=== PATIENT | male | born 1965 | race Caucasian/White ===

== ENCOUNTER 2019-03-04 22:09 | Emergency (ER) | payer MEDICAID, OTHER ==
[~2019-03-04] VITALS: Ht 177.8 cm; Wt 167.2 kg
[~2019-03-04 22:09] MED LIST: ASPI-650 PO; LISI5TAB7 PO; METF10002 PO; METO25TA35 PO; SIMV20TA PO
--- NOTE | 2019-03-04 22:28 | NUR ---
Break rn:Pt presents to ed c/o generalized rash/hives throughout body. Cluster of hives noted throughout upper/lower extremities and trunk. States sob and cp last night while "my head was swelling and my body was all swollen" Denies any cp tonight. Denies any recent habit changes or new medications. All monitoring applied. Md at bedside for assessment.
[2019-03-04] MEDS ORDERED: methylPREDNISolone SOD SUCC 40 MG/ML ONE (22:46)
[2019-03-04] MEDS ORDERED: DIPHENHYDRAMINE 50 MG/ML, 1ML ONE (22:46)
[2019-03-04] MEDS ORDERED: EPINEPHRINE 1 MG/ML, 1ML ONE (22:46)
--- NOTE | 2019-03-04 22:53 | NUR ---
Pt report to Elise perez.
[2019-03-04] MEDS ORDERED: methylPREDNISolone SOD SUCC 125 MG/2 ML IVPush ONE (23:00)
[2019-03-04] MEDS ORDERED: DIPHENHYDRAMINE 50 MG/ML, 1ML IVPush ONE (23:00)
[2019-03-04] MEDS ORDERED: EPINEPHRINE 1 MG/ML, 1ML SQ ONE (23:00)
[2019-03-04 23:03] LABS: MEAN CORPUSCULAR HEMOGLOBIN 30.3 pg (27.5-34.5); MEAN CORPUSCULAR HGB CONC 32.5 g/dL (33.2-36.2); MEAN CORPUSCULAR VOLUME 93.4 fL (81-97); MEAN PLATELET VOLUME 7.9 fL (7.4-10.4); PLATELET COUNT 355 x10^3/uL (130-400); RED BLOOD COUNT 5.69 x10^6/uL (4.38-5.82)
[2019-03-04 23:08] LABS: MD YES
[2019-03-04 23:11] LABS: ALANINE AMINOTRANSFERASE 24 U/L (12-78); ALBUMIN 3.5 g/dL (3.4-5.0); ANION GAP 7 mmol/L (5-15); CALCIUM 8.7 mg/dL (8.5-10.1); CHLORIDE 108 mmol/L (98-107); CREATININE 1.56 mg/dL (0.7-1.3)
[2019-03-04 23:16] LABS: ALKALINE PHOSPHATASE 81 U/L (45-117); BILIRUBIN,TOTAL 1.5 mg/dL (0.2-1.0); TOTAL PROTEIN 7.6 g/dL (6.4-8.2); TROPONIN I < 0.015 ng/mL (0.000-0.045)
[2019-03-04 23:41] LABS: BAND#(MANUAL) 0.33 x10^3/uL; BANDS%(MANUAL) 3 % (0-7); LYMPH#(MANUAL) 1.85 x10^3/uL (1-3.4); LYMPHS% (MANUAL) 17 % (22-44); MONOS#(MANUAL) 0.65 x10^3/uL (0.3-2.7); MONOS% (MANUAL) 6 % (2-9); MYELOCYTES# (MANUAL) 0.11 x10^3/uL (0-0); MYELOCYTES% (MANUAL) 1 % (0-0); SEG#(MANUAL) 7.96 x10^3/uL (1.8-6.8); SEGS% (MANUAL) 73 % (42-75)
[2019-03-04 23:42] LABS: <PLATELET ESTIMATE> ADEQUATE; <PLT MORPHOLOGY> NORMAL PLT MORPH; <RBC MORPHOLOGY> NORMAL
[2019-03-05 01:52] VITALS: BP 102/62
== END 2019-03-05 01:54 | disposition home or self-care (01) ==
LOC: ED 23:59
DX: L50.9 Urticaria, unspecified (principal); T78.40XA Allergy, unspecified, initial encounter; E11.9 Type 2 diabetes mellitus without complications; X58.XXXA Exposure to other specified factors, initial encounter
CPT/HCPCS: 36415; 80053; 84484; 85025; 93005; 96372; 96374; 96375; 99284; J0171; J1200; J2930